=== PATIENT | male | born 1970 | race Native Hawaiian/Other Pacific Islander ===

== ENCOUNTER 2017-08-01 11:39 | Outpatient (CLI) | payer OTHER ==
[~2017-08-01 11:39] MED LIST: ACET-689 PO; AMBIEN5 MG PO; CLON0.5T36 PO; GABA300C2 PO; LISI20TA11 PO; OMEP20CA PO; TRAM50TA PO; ZANTAC 75 PO
[2017-08-01 12:41] LABS: PLATELET COUNT 260 K/uL (142-355)
[2017-08-01 12:51] LABS: POTASSIUM 4.3 mmol/L (3.6-5.2)
== END 2017-08-01 20:24 | disposition home or self-care (01) ==
LOC: LAB 11:39
PROVIDERS: Internal Medicine Infectious Disease
DX: M86.8X8 Other osteomyelitis, other site (principal); Z79.2 Long term (current) use of antibiotics
CPT/HCPCS: 80053; 85027; 85651; 86140

== ENCOUNTER 2017-08-08 12:46 | Outpatient (CLI) | payer OTHER ==
[2017-08-08 13:11] LABS: PLATELET COUNT 273 K/uL (142-355)
[2017-08-08 13:37] LABS: POTASSIUM 4.5 mmol/L (3.6-5.2)
== END 2017-08-08 22:31 | disposition home or self-care (01) ==
LOC: LAB 12:46
PROVIDERS: Internal Medicine Infectious Disease
DX: M86.072 Acute hematogenous osteomyelitis, left ankle and foot (principal); Z79.2 Long term (current) use of antibiotics
CPT/HCPCS: 80053; 85027; 85651; 86140

== ENCOUNTER 2017-08-22 11:05 | Outpatient (CLI) | payer OTHER ==
[2017-08-22 11:45] LABS: PLATELET COUNT 260 K/uL (142-355)
[2017-08-22 12:02] LABS: POTASSIUM 4.3 mmol/L (3.6-5.2)
== END 2017-08-22 19:58 | disposition home or self-care (01) ==
LOC: LAB 11:05
PROVIDERS: Ophthalmology
DX: I10 Essential (primary) hypertension (principal); Z79.2 Long term (current) use of antibiotics
CPT/HCPCS: 80053; 85027; 85651; 86140

== ENCOUNTER 2017-12-01 10:49 | Outpatient (CLI) | payer OTHER ==
[2017-12-01 12:06] LABS: PLATELET COUNT 292 K/uL (142-355)
[2017-12-01 12:22] LABS: POTASSIUM 4.8 mmol/L (3.6-5.2)
== END 2017-12-01 19:39 | disposition home or self-care (01) ==
LOC: LABW 10:49
PROVIDERS: Podiatrist Foot & Ankle Surgery
DX: E11.40 Type 2 diabetes mellitus with diabetic neuropathy, unspecified (principal); E34.0 Carcinoid syndrome
CPT/HCPCS: 36415; 80048; 83036; 83735; 84100; 85027; 85651; 86140

== ENCOUNTER 2018-05-23 13:41 | Outpatient (CLI) | payer OTHER | END 2018-05-23 19:23 | disposition home or self-care (01) | LOC: MRI 13:41 | DX: Z01.818 Encounter for other preprocedural examination (principal) ==

== ENCOUNTER 2019-10-10 15:24 | Outpatient (CLI) | payer OTHER | END 2019-10-10 21:41 | disposition home or self-care (01) | LOC: LAB 15:24 | DX: L02.414 Cutaneous abscess of left upper limb (principal) | CPT/HCPCS: 87070; 87077; 87185; 87186; 87205 ==

== ENCOUNTER 2020-11-04 14:47 | Outpatient (CLI) | payer OTHER ==
[2020-11-04 15:14] LABS: PLATELET COUNT 266 K/uL (142-355)
[2020-11-04 15:34] LABS: POTASSIUM 4.3 mmol/L (3.6-5.2)
== END 2020-11-04 21:04 | disposition home or self-care (01) ==
LOC: LABW 14:47
PROVIDERS: ATTEND Internal Medicine
DX: N18.9 Chronic kidney disease, unspecified (principal); G62.9 Polyneuropathy, unspecified; E53.8 Deficiency of other specified B group vitamins; Z79.899 Other long term (current) drug therapy
CPT/HCPCS: 36415; 80053; 81000; 82043; 82330; 82550; 82570; 82607; 82728; 83036; 83540; 83550; 83735; 84100; 84155; 84439; 84443; 85027; 85652; 86038; 86140

== ENCOUNTER 2021-02-23 10:10 | Outpatient (CLI) | payer OTHER ==
[2021-02-23 10:35] LABS: PLATELET COUNT 220 K/uL (142-355)
[2021-02-23 11:05] LABS: POTASSIUM 3.8 mmol/L (3.6-5.2)
== END 2021-02-23 19:00 | disposition home or self-care (01) ==
LOC: LABW 10:10
PROVIDERS: ATTEND Internal Medicine
DX: G62.89 Other specified polyneuropathies (principal); R53.83 Other fatigue; N18.31 Chronic kidney disease, stage 3a; Z79.899 Other long term (current) drug therapy
CPT/HCPCS: 36415; 80053; 81000; 82043; 82330; 82550; 82570; 82728; 83036; 83735; 84100; 84155; 85027; 85652; 86038; 86140

== ENCOUNTER 2021-08-11 13:01 | Outpatient (CLI) | payer OTHER ==
[2021-08-11 13:49] LABS: PLATELET COUNT 277 K/uL (142-355)
[2021-08-11 14:05] LABS: POTASSIUM 4.3 mmol/L (3.6-5.2)
== END 2021-08-11 19:21 | disposition home or self-care (01) ==
LOC: LABW 13:01
PROVIDERS: ATTEND Internal Medicine
DX: I12.9 Hypertensive chronic kidney disease with stage 1 through stage 4 chronic kidney disease, or unspecified chronic kidney disease (principal); N18.9 Chronic kidney disease, unspecified; Z79.899 Other long term (current) drug therapy
CPT/HCPCS: 36415; 80053; 81000; 82043; 82306; 82330; 82550; 82570; 82728; 83036; 83735; 84100; 84156; 84550; 85027; 85652; 86038; 86140

== ENCOUNTER 2021-11-23 08:06 | Outpatient (CLI) | payer OTHER ==
[2021-11-23 08:27] LABS: PLATELET COUNT 211 K/uL (142-355)
[2021-11-23 08:34] LABS: POTASSIUM 4.2 mmol/L (3.6-5.2)
== END 2021-11-23 19:51 | disposition home or self-care (01) ==
LOC: LABW 08:06
PROVIDERS: ATTEND Physician Assistant Medical
DX: Z01.818 Encounter for other preprocedural examination (principal)
CPT/HCPCS: 36415; 80048; 85027; 85610; 87070

== ENCOUNTER 2022-04-18 12:47 | Outpatient (CLI) | payer OTHER ==
[2022-04-18 13:16] LABS: PLATELET COUNT 277 K/uL (142-355)
== END 2022-04-18 19:07 | disposition home or self-care (01) ==
LOC: LABW 12:47
PROVIDERS: ATTEND Internal Medicine
DX: N18.31 Chronic kidney disease, stage 3a (principal); G62.89 Other specified polyneuropathies; R53.83 Other fatigue; Z79.899 Other long term (current) drug therapy; R79.89 Other specified abnormal findings of blood chemistry
CPT/HCPCS: 36415; 80053; 81002; 82043; 82330; 82550; 82553; 82570; 82728; 83036; 83735; 84100; 84156; 85027; 85652; 86038; 86140

== ENCOUNTER 2022-11-17 11:22 | Outpatient (CLI) | payer OTHER ==
[2022-11-17 12:33] LABS: PLATELET COUNT 241 K/uL (142-355)
[2022-11-17 13:00] LABS: POTASSIUM 4.5 mmol/L (3.6-5.2)
== END 2022-11-17 21:50 | disposition home or self-care (01) ==
LOC: LABW 11:22
PROVIDERS: ATTEND Internal Medicine
DX: N18.31 Chronic kidney disease, stage 3a (principal); G62.89 Other specified polyneuropathies; R53.83 Other fatigue; Z79.899 Other long term (current) drug therapy
CPT/HCPCS: 36415; 80053; 82330; 82550; 82728; 83036; 83735; 84100; 85027; 85652; 86038; 86140

== ENCOUNTER 2022-11-18 18:14 | Outpatient (CLI) | payer OTHER | END 2022-11-18 21:56 | disposition home or self-care (01) | LOC: LAB 18:14 | PROVIDERS: ATTEND Internal Medicine | DX: N18.31 Chronic kidney disease, stage 3a (principal) | CPT/HCPCS: 81002; 82570; 84156 ==

== ENCOUNTER 2022-12-10 10:11 | Outpatient (CLI) | payer OTHER | END 2022-12-10 23:01 | disposition home or self-care (01) | LOC: LABW 10:11 | PROVIDERS: ATTEND Internal Medicine Pulmonary Disease | DX: R06.09 Other forms of dyspnea (principal); E66.2 Morbid (severe) obesity with alveolar hypoventilation; F17.210 Nicotine dependence, cigarettes, uncomplicated | CPT/HCPCS: 36415; 36600; 82103; 82104; 82805 ==